=== PATIENT | male | born 1975 | race Caucasian/White ===

== ENCOUNTER 2023-01-06 18:18 | Emergency (ER) | payer MEDICAID, OTHER ==
[~2023-01-06] VITALS: Ht 177.8 cm; Wt 82.0 kg
[2023-01-06 18:22] VITALS: BP 170/120; PULSE 112; RESP 16; TEMP 99.4; O2SAT 99
[2023-01-06] MEDS ORDERED: SODIUM CHLORIDE 0.9% 1,000 ML IV ONE (18:45)
[2023-01-06 19:14] LABS: BASOPHILS % 0.5 % (0.0-2.0); EOSINOPHILS % 0.8 % (0.0-5.0); HEMOGLOBIN. 11.3 g/dL (14.0-18.0); LYMPHOCYTES % 11.8 % (20.0-50.0); MEAN CORPUSCULAR HEMOGLOBIN 28.7 pg (28.0-32.0); MEAN CORPUSCULAR VOLUME 83.7 fL (80.0-94.0); MEAN PLATELET VOLUME 9.9 fl (7.4-10.4); MONOCYTES % 5.7 % (2.0-8.0); NEUTROPHILS % 81.2 % (40.0-76.0); PLATELET 292 x1000/uL (130-400); RED BLOOD CELL COUNT 3.94 mill/uL (4.7-6.1); RED CELL DISTRIBUTION WIDTH 12.8 % (11.6-14.6)
[2023-01-06 19:17] LABS: CHLORIDE 86 mEq/L (98-107)
[2023-01-06 19:24] LABS: BETA HYDROXYBUTYRATE 0.1 mMol/L (0.0-0.3); ETHANOL BLOOD < 10 mg/dL (-10)
[2023-01-06] MEDS ORDERED: INSULIN REGULAR (HUMULIN R) 300UNITS/3ML VIAL SUBCUT ONE (19:45)
== END 2023-01-06 20:03 | disposition left against medical advice (07) ==
LOC: ER 18:18
DX: E11.65 Type 2 diabetes mellitus with hyperglycemia (principal); E87.1 Hypo-osmolality and hyponatremia; N17.9 Acute kidney failure, unspecified; I10 Essential (primary) hypertension
CPT/HCPCS: 80053; 82010; 80320; 83605; 83690; 83930; 85025; 87040; 36415; 71045; 93005; 96360; 99285; J7030; G0480